=== PATIENT | male | born 1955 | race Two or more races ===

== ENCOUNTER 2022-11-16 23:02 | Emergency (ER) | payer OTHER ==
[~2022-11-16] VITALS: Ht 162.6 cm; Wt 72.1 kg
[2022-11-16] MEDS ORDERED: LIPITOR40 M1 PO (23:21)
[2022-11-17] MEDS ORDERED: MEDROLPACK PO (02:14)
[2022-11-17] MEDS ORDERED: ZITHROMAX500 MG PO (02:14)
[2022-11-17] MEDS ORDERED: TUSNEL LIQUID178 ML PO (02:14)
[2022-11-17] MEDS ORDERED: PROAIR RESPICL90 MCG IH (02:14)
== END 2022-11-17 02:17 | disposition home or self-care (01) ==
LOC: ER 23:02
DX: U07.1 COVID-19 (principal); E78.5 Hyperlipidemia, unspecified